=== PATIENT | male | born 2000 | race African-American/Black ===

== ENCOUNTER 2022-02-22 20:04 | Emergency (ER) | payer OTHER ==
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
[2022-02-22 21:37] VITALS: BP 133/82; PULSE 89; RESP 18; TEMP 99.3
== END 2022-02-22 21:37 | disposition home or self-care (01) ==
LOC: EC 20:04
DX: S06.0X9A Concussion with loss of consciousness of unspecified duration, initial encounter (principal); F10.129 Alcohol abuse with intoxication, unspecified; X58.XXXA Exposure to other specified factors, initial encounter
CPT/HCPCS: 70450; 72125